=== PATIENT | male | born 1960 | race Caucasian/White ===

== ENCOUNTER → 2023-01-12 | Outpatient (CLI) | payer OTHER, MEDICAID ==
[~2023-01-12] MED LIST: LISINOPRIL-HYDR1 TA4 PO
[2023-01-12 11:12] LABS: BASO # 0.1 10*3/uL (0.0-0.1); BASO % 1.1 % (0.0-1.0); EOS # 0.7 10*3/uL (0.0-0.4); EOS % 13.4 % (1.0-4.0); HEMATOCRIT 48.4 % (42.0-52.0); LYMPH # 1.6 10*3/uL (1.3-4.4); MEAN CORPUSCULAR HGB 28.4 pg (27.0-31.0); MEAN CORPUSCULAR HGB CONC 32.2 g/dl (33.0-37.0); MEAN PLATELET VOLUME 9.6 fl (9.6-12.3); MONO # 0.5 10*3/uL (0.1-1.0); MONO % 9.3 % (3.0-9.0); NEUT # 2.5 10*3/uL (2.3-7.9); NEUT % 45.8 % (47.0-73.0); PLATELET COUNT AUTOMATED 237 10*3/uL (130-400); RED CELL DISTRI WIDTH 14.7 % (0-14.5); WHITE BLOOD COUNT 5.4 10*3/uL (4.8-10.8)
[2023-01-12 12:36] LABS: ALKALINE PHOSPHATASE 70 U/L (46-116); BUN 9 mg/dl (9-23); CHLORIDE 105 mmol/L (98-107); CHOLESTEROL 167 mg/dL (<200); LDL CHOLESTEROL 92 mg/dL (9-159); SGPT/ALT 16 U/L (5-49); TOTAL PROTEIN 6.6 gm/dL (6.0-8.0); TRIGLYCERIDES 181 mg/dl (<150)
== END | disposition home or self-care (01) ==
LOC: LAB 10:32
PROVIDERS: ATTEND Nurse Practitioner Family
DX: I10 Essential (primary) hypertension (principal); G47.00 Insomnia, unspecified; R45.4 Irritability and anger; F12.90 Cannabis use, unspecified, uncomplicated

== ENCOUNTER 2023-08-10 11:18 | Emergency (ER) | payer OTHER, MEDICAID ==
[~2023-08-10] VITALS: Ht 170.1 cm; Wt 81.6 kg
[2023-08-10] MEDS ORDERED: hydrALAZINE hydrochloride 20 MG/ML VIAL IV ONE (11:45)
[2023-08-10 12:07] LABS: BASO # 0.1 10*3/uL (0.0-0.1); BASO % 2.3 % (0.0-1.0); EOS # 0.4 10*3/uL (0.0-0.4); HEMATOCRIT 45.9 % (42.0-52.0); LYMPH # 1.6 10*3/uL (1.3-4.4); LYMPH % 30.1 % (27.0-41.0); MEAN CELL VOLUME 88.8 fl (80.0-94.0); MEAN CORPUSCULAR HGB 28.6 pg (27.0-31.0); MEAN CORPUSCULAR HGB CONC 32.2 g/dl (33.0-37.0); MEAN PLATELET VOLUME 9.2 fl (9.6-12.3); MONO # 0.5 10*3/uL (0.1-1.0); NEUT # 2.6 10*3/uL (2.3-7.9); NEUT % 50.2 % (47.0-73.0); PLATELET COUNT AUTOMATED 204 10*3/uL (130-400); RED BLOOD COUNT 5.17 10*6/uL (4.50-5.90); RED CELL DISTRI WIDTH 13.7 % (0-14.5); WHITE BLOOD COUNT 5.3 10*3/uL (4.8-10.8)
[2023-08-10 12:20] LABS: ACT PARTIAL THROMBO TIME 28.1 SECONDS (20.0-32.1)
[2023-08-10 12:25] LABS: BUN 6 mg/dl (9-23); CHLORIDE 108 mmol/L (98-107)
[2023-08-10] MEDS ORDERED: ZESTORETIC 20-1 EACH PO (13:58)
== END 2023-08-10 14:05 | disposition home or self-care (01) ==
LOC: ED 11:18
PROVIDERS: Nurse Practitioner
DX: I16.0 Hypertensive urgency (principal); M25.521 Pain in right elbow; Z88.6 Allergy status to analgesic agent; Z88.8 Allergy status to other drugs, medicaments and biological substances; Z98.890 Other specified postprocedural states

== ENCOUNTER → 2023-08-23 | Outpatient (CLI) | payer OTHER, MEDICAID ==
[~2023-08-23] MED LIST changes: +ZESTORETIC 20-1 EACH PO
[2023-08-23 08:25] LABS: BASO # 0.1 10*3/uL (0.0-0.1); EOS # 0.5 10*3/uL (0.0-0.4); EOS % 8.7 % (1.0-4.0); HEMATOCRIT 47.5 % (42.0-52.0); LYMPH # 1.8 10*3/uL (1.3-4.4); LYMPH % 29.3 % (27.0-41.0); MEAN CELL VOLUME 88.6 fl (80.0-94.0); MEAN CORPUSCULAR HGB 29.1 pg (27.0-31.0); MEAN CORPUSCULAR HGB CONC 32.8 g/dl (33.0-37.0); MEAN PLATELET VOLUME 9.4 fl (9.6-12.3); MONO # 0.6 10*3/uL (0.1-1.0); MONO % 9.8 % (3.0-9.0); NEUT % 49.7 % (47.0-73.0); PLATELET COUNT AUTOMATED 223 10*3/uL (130-400); RED BLOOD COUNT 5.36 10*6/uL (4.50-5.90); RED CELL DISTRI WIDTH 13.5 % (0-14.5)
[2023-08-23 09:11] LABS: ALKALINE PHOSPHATASE 63 U/L (46-116); BUN 13 mg/dl (9-23); CHLORIDE 102 mmol/L (98-107); CHOLESTEROL 170 mg/dL (<200); LDL CHOLESTEROL 97 mg/dL (9-159); POTASSIUM 3.9 mmol/L (3.4-5.1); SGPT/ALT 19 U/L (5-49); TOTAL PROTEIN 6.8 gm/dL (6.0-8.0); TRIGLYCERIDES 169 mg/dl (<150)
== END | disposition home or self-care (01) ==
LOC: LAB 08:11
PROVIDERS: ATTEND Nurse Practitioner Family
DX: I10 Essential (primary) hypertension (principal)

== ENCOUNTER → 2023-10-06 | Outpatient (CLI) | payer OTHER, MEDICAID | END | disposition home or self-care (01) | LOC: LAB 08:35 | PROVIDERS: ATTEND Nurse Practitioner Family | DX: R73.01 Impaired fasting glucose (principal) ==

== ENCOUNTER 2024-02-21 14:11 | Emergency (ER) | payer OTHER ==
[~2024-02-21] VITALS: Ht 170.1 cm; Wt 90.7 kg
[2024-02-21] MEDS ORDERED: Acetaminophen/Hydrocodone 5 MG/325 MG TABLET PO ONE (14:45)
== END 2024-02-21 16:10 | disposition home or self-care (01) ==
LOC: ED 14:11
DX: S83.91XA Sprain of unspecified site of right knee, initial encounter (principal); I10 Essential (primary) hypertension; Z88.8 Allergy status to other drugs, medicaments and biological substances; Z88.6 Allergy status to analgesic agent; Z98.890 Other specified postprocedural states; W01.0XXA Fall on same level from slipping, tripping and stumbling without subsequent striking against object, initial encounter; Y93.89 Activity, other specified; Y92.89 Other specified places as the place of occurrence of the external cause; Y99.8 Other external cause status

== ENCOUNTER 2024-10-29 07:31 | Emergency (ER) | payer OTHER ==
[~2024-10-29] VITALS: Ht 170.1 cm; Wt 86.2 kg
[2024-10-29] MEDS ORDERED: Ondansetron Hydrochloride 4 MG/2 ML VIAL IV ONE (07:35)
[2024-10-29] MEDS ORDERED: Tdap Vaccine 0.5 ML SYR (Adult Vaccine) IM ONE (07:35)
[2024-10-29] MEDS ORDERED: SODIUM CHLORIDE 0.9% 1,000 ML IV ONE (07:35)
[2024-10-29] MEDS ORDERED: AMOX-CLAV 875-1 EACH PO (07:40)
[2024-10-29] MEDS ORDERED: PERCOCET 5-3251 EACH PO (07:40)
[2024-10-29 07:50] LABS: BASO # 0.1 10*3/uL (0.0-0.1); BASO % 1.5 % (0.0-1.0); NUCLEATED RED BLOOD CELL 0.0 % (0.0-0.0); NUCLEATED RED BLOOD CELL 0.0 10*3/uL (0.0-0.0)
[2024-10-29 08:58] LABS: MEAN CELL VOLUME 91.6 fl (80.0-94.0)
[2024-10-29 08:59] LABS: MEAN CORPUSCULAR HGB 29.0 pg (27.0-31.0); RED CELL DISTRI WIDTH 12.8 % (0-14.5)
[2024-10-29 09:00] LABS: MEAN PLATELET VOLUME 9.2 fl (9.6-12.3); PLATELET COUNT AUTOMATED 233 10*3/uL (130-400)
[2024-10-29 09:01] LABS: MONO % 9.5 % (3.0-9.0); NEUT % 70.5 % (47.0-73.0)
[2024-10-29 09:02] LABS: EOS % 3.5 % (1.0-4.0)
[2024-10-29 09:03] LABS: EOS # 0.2 10*3/uL (0.0-0.4); MONO # 0.6 10*3/uL (0.1-1.0); NEUT # 4.7 10*3/uL (2.3-7.9)
[2024-10-29 09:05] LABS: BUN 10 mg/dl (9-23)
[2024-10-29] MEDS ORDERED: POTASSIUM CHLORIDE 20 MEQ TAB PO ONE (09:15)
== END 2024-10-29 09:38 | disposition home or self-care (01) ==
LOC: ED 07:31
PROVIDERS: Emergency Medicine
DX: S51.812A Laceration without foreign body of left forearm, initial encounter (principal); I10 Essential (primary) hypertension; E78.5 Hyperlipidemia, unspecified; Z88.8 Allergy status to other drugs, medicaments and biological substances; Z79.899 Other long term (current) drug therapy; W54.0XXA Bitten by dog, initial encounter; Y93.89 Activity, other specified; Y92.89 Other specified places as the place of occurrence of the external cause; Y99.8 Other external cause status